=== PATIENT | female | born 1970 | race Caucasian/White ===

== ENCOUNTER 2016-11-21 05:49 | Day surgery (SDC) | payer MEDICARE, OTHER ==
[2016-11-20 09:03] VITALS: BMI 43.9
[~2016-11-21 05:49] MED LIST: ACETAMINOPHEN TAB 500 MG TAB PO ONE; FAMOTIDINE 20 MG/2 ML VIAL IV ONE; Pre Op ABX Message 1 EACH MISC MISCELLANE ONE
[2016-11-21] MEDS ORDERED: HYDROmorphone 1 MG/ML 1 ML SYRINGE IVP PRN (05:52)
[2016-11-21] MEDS ORDERED: SCOPOLAMINE 1.5MG/72HR PATCH TRANSDERM ONE (05:52)
[2016-11-21] MEDS ORDERED: LACTATED RINGERS 1,000 ML IV SCH (05:52)
[2016-11-21] MEDS ORDERED: ONDANSETRON 4 MG/2 ML VIAL IVP ONE (05:52)
[2016-11-21] MEDS ORDERED: LIDOCAINE 1% 20 ML VIAL (10MG/ML) FOR IV START INTRADERMA PRN (05:52)
[2016-11-21] MEDS ORDERED: DEXAMETHASONE SOD PHOSPHATE 10 MG/ML 1 ML VIAL IV ONE (05:52)
[2016-11-21] MEDS ORDERED: CIPROFLOXACIN-DEXAMETH 0.3-0.1% DROPS 7.5 ML BTL BOTH EARS ONE (07:26)
[2016-11-21] MEDS ORDERED: SUCCINYLCHOLINE CHLORIDE VIAL 200 MG/10 ML VIAL IV ONE (07:30)
[2016-11-21] MEDS ORDERED: LIDOCAINE 1% INJ 10MG/ML (20 ML MDV) ONE (07:30)
[2016-11-21] MEDS ORDERED: MIDAZOLAM 2 MG/2 ML VIAL ONE (07:30)
[2016-11-21] MEDS ORDERED: fentaNYL (PF) 50 MCG/ML 2 ML AMP ONE (07:30)
[2016-11-21] MEDS ORDERED: PROPOFOL 10 MG/ML 20 ML VIAL IV ONE (07:30)
[2016-11-21] MEDS ORDERED: OXYMETAZOLINE 0.05% NASL SPRAY 15 ML MISCELLANE ONE (07:48)
[2016-11-21] MEDS ORDERED: EPINEPHrine 1 MG/ML 1 ML AMP IRRIGATION ONE (08:09)
[2016-11-21 08:30] VITALS: TEMP 97.3
--- NOTE | 2016-11-21 08:45 | P.OP ---
Date of Procedure: 11/21/16 Preoperative Diagnosis: Bilateral chronic suppurative otitis media Left Aural Polyp Middle ear adhesions Eust tube dysfunction Retained TM tubes Bilateral tympanic membrane perforations Postoperative Diagnosis: Same Procedure(s) Performed: Bilateral tympanoplasties with lysis of middle ear adhesions and the use of a bio design graft Microscopic removal of a left aural polyp Bilateral direct microscopic tympanostomy tube placement Microscopic removal of bilateral retained nonfunctioning tympanostomy tubes Middle ear lavage bilaterally Implants: Anesthesia: GETA Surgeon: Gucci Turpin Estimated Blood Loss (ml): 5 Pathology: other (Left ear polyp) Condition: stable Disposition: PACU Indications for Procedure: This patient has a chronic separate of drainage from both ears and this patient' s ear infection has been persistent without any resolution. Patient had retained tubes that are nonfunctioning and a separate of drainage was not amenable to medical therapy. Operative Findings: Patient had retained tympanostomy tubes which were removed the patient had a large amount of polyp material on the left tympanic membrane and middle ear adhesions were noted bilaterally. The drums were thickened and the purulence was profuse Description of Procedure: This patient was taken to the operative room and placed in the supine position. A general inhalation anesthetic was administered to the patient by mask and subsequently intubated with a cuffed endotracheal tube by the department of anesthesia with a functioning IV line in place. The patient was monitored throughout the entire case by the department of anesthesia. Both ears were visualized with a 250 mm Zeiss microscope. Cerumen and epithelial debris was removed from both external auditory canals. The patient had retained tubes that were removed directly with a alligator biopsy forceps. This left a perforated eardrum. I then noted a large amount of purulence in the middle ear space. We suctioned the middle ear space but multiple adhesions were noted. There is a polyp on the left drum that was removed with biopsy forceps. He was phthisis was with Afrin and adrenaline. Because of this perforation and middle ear adhesions a middle ear exploration was needed and tympanomeatal flaps were developed and the 12 and 6 o'clock position. The annulus was elevated and the middle ear was identified and found to be multiply adhesive. We lysed the adhesions in the middle ear space bilaterally and irrigated the middle ear with a dilute Betadine solution. After the irrigation we placed the bio design graft with associated Gelfoam packing as an underlay graft. We placed the drum back into position a tympanostomy incision was made on the inferior posterior portion of the tympanic membrane and a new tube was placed utilizing ultraseal tubes bilaterally. After new tubes were placed and the graft was in place Gelfoam was used to pack in the proximal ear canal. A cotton ball was then placed and the patient tolerated this well. To summarize we performed a tympanoplasty where we roughen the edges of the perforation performed at 12 and 6:00 tympanomeatal flap and placed the bio design graft as an underlay graft with packing. After the whole was patched a new tube was placed and the tympanomeatal flap was placed back into position. There was a polyp removed from the left ear there was sent for biopsy evaluation and we did lyse multiple middle ear adhesions. The patient tolerated this well and the follow-up is scheduled for 1 week. The patient is to contact me if any problems should arise.
[2016-11-21 09:23] VITALS: RESP 16
[2016-11-21 09:40] VITALS: BP 143/95; PULSE 79
[2016-11-21] MEDS ORDERED: OXYMETAZOLINE 0.05% NASL SPRAY 15 ML ONE (14:00)
--- NOTE | 2016-12-10 10:37 | OP ---
DATE OF SERVICE: SURGEON: ANN KRUEGER DO ADDENDUM: Original dictation oil program compliance specialist stated that she was phthisis was with Afrin and adrenaline. That should be changed to hemostasis was obtained with Afrin and adrenaline topically.
== END 2016-11-21 10:09 | disposition home or self-care (01) ==
LOC: OR 05:49 → EEVIPCON 07:30 → OR 10:09
PROVIDERS: ATTEND Otolaryngology
DX: H66.3X3 Other chronic suppurative otitis media, bilateral (principal); T85.618A Breakdown (mechanical) of other specified internal prosthetic devices, implants and grafts, initial encounter; H90.2 Conductive hearing loss, unspecified; E66.9 Obesity, unspecified; Z68.41 Body mass index [BMI] 40.0-44.9, adult; H72.93 Unspecified perforation of tympanic membrane, bilateral; H69.90 Unspecified Eustachian tube disorder, unspecified ear; H74.42 Polyp of left middle ear; H74.19 Adhesive middle ear disease, unspecified ear; G47.33 Obstructive sleep apnea (adult) (pediatric); Z99.89 Dependence on other enabling machines and devices; Z79.899 Other long term (current) drug therapy; Y72.2 Prosthetic and other implants, materials and accessory otorhinolaryngological devices associated with adverse incidents
CPT/HCPCS: 69436; 69540; 88304; C1763; J2250; J0171; J0330; J1100; J2405; J2001; J3010; J2704

== ENCOUNTER 2017-02-27 08:27 | Day surgery (SDC) | payer MEDICARE, OTHER ==
[2017-02-26 09:30] VITALS: BMI 43.9
[~2017-02-27 08:27] MED LIST changes: -ACETAMINOPHEN TAB 500 MG TAB PO ONE; -FAMOTIDINE 20 MG/2 ML VIAL IV ONE; +LACTATED RINGERS 1,000 ML IV SCH; -Pre Op ABX Message 1 EACH MISC MISCELLANE ONE
[2017-02-27 08:46] VITALS: RESP 16; TEMP 97.5
[2017-02-27] MEDS ORDERED: MIDAZOLAM 2 MG/2 ML VIAL ONE (09:40)
[2017-02-27] MEDS ORDERED: PROPOFOL 10 MG/ML 20 ML VIAL IV ONE (09:40)
[2017-02-27] MEDS ORDERED: LIDOCAINE 1% INJ 10MG/ML (20 ML MDV) ONE (09:40)
--- NOTE | 2017-02-27 10:16 | CT ---
EXAMINATION TYPE: CT iac wo con DATE OF EXAM: 02/27/2017 COMPARISON: NONE HISTORY: Ear pain CT DLP: 285.4mGycm Automated exposure control for dose reduction was used. FINDINGS: Visualized intracranial structures are normal. There is a 1 cm retention cyst or polyp involving the inferior aspect of the right maxillary sinus. B oth infundibula are patent. The orbits appear normal. Both external auditory canals appear normal there is a small amount of soft tissue within the middle ears bilaterally, greater on the left than the right. Both scuta are are intact. The ossicles are int act. Inner ear structures are unremarkable. There is no widening of the porus acoustic this on either side. Both temporomandibular joints appear normal. IMPRESSION: 1. SOFT TISSUE WITHIN THE MIDDLE EARS BILATERALLY MAY REPRESENT CHRONIC OTITIS MEDIA. NO DEFINITE CHO LESTEATOMA IS SEEN. NO DEFINITE MIDDLE EAR FLUID IS SEEN. 2. 1 CM RETENTION CYST OR POLYP INVOLVING THE RIGHT MAXILLARY ANTRUM.
[2017-02-27 10:22] VITALS: BP 138/80; PULSE 66
== END 2017-02-27 10:35 | disposition home or self-care (01) ==
LOC: OR 08:27 → EDSTATUS 09:30 → OR 10:35
PROVIDERS: ATTEND Anesthesiology
DX: H92.09 Otalgia, unspecified ear (principal); J34.9 Unspecified disorder of nose and nasal sinuses; G47.33 Obstructive sleep apnea (adult) (pediatric); Z99.89 Dependence on other enabling machines and devices; E07.9 Disorder of thyroid, unspecified; F79 Unspecified intellectual disabilities; F20.9 Schizophrenia, unspecified; Z79.899 Other long term (current) drug therapy
CPT/HCPCS: 70480; J2250; J2001; J2704

== ENCOUNTER → 2018-02-02 | Outpatient (CLI) | payer MEDICARE, OTHER ==
--- NOTE | 2018-02-02 11:46 | US ---
EXAMINATION TYPE: US pelvic complete DATE OF EXAM: 02/02/2018 COMPARISON: NONE CLINICAL HISTORY: N95.0 Postmenopausal Bleeding. Postmenopausal bleeding TECHNIQUE: Transabdominal (TA) Date of LMP: unknown EXAM MEASUREMENTS: Uterus: 6.3 x 2.9 x 3.8 cm Endometrial Stripe: 1.1 cm Right Ovary: 1.9 x 1.1 x 1.2 cm Left Ovary: 2.4 x 1.4 x 1.3 cm 1. Uterus: Anteverted appears wnl 2. Endometrium: thickened 3. Right Ovary: appears wnl as visualized 4. Left Ovary: appears wnl as visualized 5. Bilateral Adnexa: wnl 6. Posterior cul-de-sac: wnl IMPRESSION: Endometrial stripe thickness as described on transabdominal scanning, correlate for possi ble endometrial biopsy
== END | disposition home or self-care (01) ==
LOC: RADUSWWP 09:31
PROVIDERS: ATTEND Obstetrics & Gynecology
DX: R93.8 Abnormal findings on diagnostic imaging of other specified body structures (principal); N95.0 Postmenopausal bleeding
CPT/HCPCS: 76856

== ENCOUNTER 2018-02-27 06:08 | Day surgery (SDC) | payer MEDICARE, OTHER ==
[2018-02-24 16:08] VITALS: BMI 41.9
[~2018-02-27 06:08] MED LIST changes: +DEXAMETHASONE SOD PHOSPHATE 10 MG/ML 1 ML VIAL IV ONE; +MIDAZOLAM 2 MG/2 ML VIAL IV PRN; +ONDANSETRON 4 MG/2 ML VIAL IVP ONE; +Pre Op ABX Message 1 EACH MISC MISCELLANE ONE; +SCOPOLAMINE 1.5MG/72HR PATCH TRANSDERM ONE; +fentaNYL (PF) 50 MCG/ML 2 ML AMP IV PRN
--- NOTE | 2018-02-27 06:24 | P.HPOB ---
History of Present Illness H&P Date: 02/27/18 Chief Complaint: Postmenopausal bleeding 47 year old G0 presents for D&C hysteroscopy due to postmenopausal bleeding and thickened endometrium on ultrasound. Review of Systems All systems: negative Constitutional: Denies chills, Denies fever Eyes: denies blurred vision, denies pain Ears, nose, mouth and throat: Denies headache, Denies sore throat Cardiovascular: Denies chest pain, Denies shortness of breath Respiratory: Denies cough Gastrointestinal: Denies abdominal pain, Denies diarrhea, Denies nausea, Denies vomiting Genitourinary: Denies dysuria, Denies hematuria Musculoskeletal: Denies myalgias Integumentary: Denies pruritus, Denies rash Neurological: Denies numbness, Denies weakness Psychiatric: Denies anxiety, Denies depression Endocrine: Denies fatigue, Denies weight change Past Medical History Past Medical History: Hearing Disorder / Deafness, Pneumonia, Sleep Apnea/CPAP/ BIPAP, Thyroid Disorder Additional Past Medical History / Comment(s): uses CPAP, hearing impaired, mentally impaired & developmentally delayed, CHRONIC EAR INFECTIONS History of Any Multi-Drug Resistant Organisms: None Reported Past Surgical History: Breast Surgery, Orthopedic Surgery, Tubal Ligation Additional Past Surgical History / Comment(s): numerous tubes in ears & tympanoplasties, right foot surg., breast surg. Past Anesthesia/Blood Transfusion Reactions: No Reported Reaction Smoking Status: Never smoker - Past Family History Mother Family Medical History: Cancer, Diabetes Mellitus Additional Family Medical History / Comment(s): THYROID, BREAST CANCER Father Family Medical History: Cancer Additional Family Medical History / Comment(s): THROAT CANCER Medications and Allergies Home Medications Medication Instructions Recorded Confirmed Type Benztropine Mesylate [Cogentin] 0.5 mg PO BID 11/20/16 02/24/18 History Cetirizine HCl [Zyrtec] 10 mg PO DAILY 11/20/16 02/24/18 History Ergocalciferol (Vitamin D2) 50,000 unit PO MO 11/20/16 02/24/18 History [Vitamin D2] Haloperidol [Haldol] 5 mg PO 1500 11/20/16 02/24/18 History Haloperidol [Haldol] 5 mg PO QAM 11/20/16 02/24/18 History Haloperidol [Haldol] 10 mg PO HS 11/20/16 02/24/18 History Levothyroxine Sodium [Synthroid] 100 mcg PO DAILY 11/20/16 02/24/18 History clonazePAM [KlonoPIN] 0.5 mg PO 0800,1500 11/20/16 02/24/18 History cycloSPORINE [Restasis] 1 applicator BOTH EYES QID 11/20/16 02/24/18 History QUEtiapine [SEROquel] 200 mg PO 1500 02/26/17 02/24/18 History QUEtiapine [SEROquel] 250 mg PO HS 02/26/17 02/24/18 History Fluticasone Nasal [place] [Flonase 2 spr EA NOSTRIL DAILY 02/24/18 02/24/18 History Nasal [place]] Allergies Allergy/AdvReac Type Severity Reaction Status Date / Time No Known Allergies Allergy Verified 02/24/18 15:30 Exam Osteopathic Statement: *. No significant issues noted on an osteopathic structural exam other than those noted in the History and Physical/Consult. Heart: Regular rate and rhythm Lungs: Clear to auscultation bilaterally Abdomen: Soft, nontender Extremities: Negative Homans sign Assessment and Plan (1) Postmenopausal bleeding Current Visit: Yes Status: Acute Code(s): N95.0 - POSTMENOPAUSAL BLEEDING SNOMED Code(s): 69123287 Plan: 1. D&C and hysteroscopy
[2018-02-27] MEDS ORDERED: LIDOCAINE 1% 20 ML VIAL (10MG/ML) FOR IV START INTRADERMA ONE (07:11)
[2018-02-27] MEDS ORDERED: PROPOFOL 10 MG/ML 20 ML VIAL IV ONE (07:32)
[2018-02-27] MEDS ORDERED: SUCCINYLCHOLINE CHLORIDE 100 MG/5 ML SYR IV ONE (07:32)
[2018-02-27] MEDS ORDERED: KETOROLAC 30 MG/ML 1 ML VIAL ONE (07:32)
[2018-02-27] MEDS ORDERED: MIDAZOLAM 2 MG/2 ML VIAL ONE (07:32)
[2018-02-27] MEDS ORDERED: LIDOCAINE 1% INJ 10MG/ML (20 ML MDV) ONE (07:32)
[2018-02-27] MEDS ORDERED: fentaNYL (PF) 50 MCG/ML 2 ML AMP ONE (07:32)
[2018-02-27 08:30] VITALS: TEMP 98.2
--- NOTE | 2018-02-27 08:39 | P.OP ---
Date of Procedure: 02/27/18 Preoperative Diagnosis: 1. Post menopausal bleeding Postoperative Diagnosis: same Procedure(s) Performed: D&C hysteroscopy Anesthesia: KOURTNEY Surgeon: Trisha Manning Estimated Blood Loss (ml): 5 IV fluids (ml): 200 Urine output (ml): 250 Pathology: other (endometrial currettings) Condition: stable Disposition: PACU Operative Findings: uterus sounded to 8cm, small polyps noted in cervix and endometrium Description of Procedure: Patient into the operating room and general anesthesia was obtained without difficulty. She is prepped and draped in normal sterile fashion dorsal lithotomy position, legs placed in the candycane stirrups. I attempted to place the weighted speculum in the vagina but her introitus was too small. This the bivalve speculum in the vagina and grasped the anterior lip the cervix with the single-tooth tenaculum. I then removed the bivalve speculum. Sounded the uterus to 8 cm. The cervix was then dilated to #8 Hegar dilator. Hysteroscopy was performed and I did see a few polyps in the cervix and in the endometrium. Sharp curet was then gently used to obtain endometrial curettings. All instruments removed from the uterus and vagina. Patient tolerated procedure well, sponge and instrument counts correct 2. She was taken to recovery in stable condition.
[2018-02-27 09:23] VITALS: BP 111/63; PULSE 77; RESP 16
== END 2018-02-27 09:45 | disposition home or self-care (01) ==
LOC: OR 06:08
PROVIDERS: ATTEND Obstetrics & Gynecology
DX: N84.0 Polyp of corpus uteri (principal); N84.1 Polyp of cervix uteri; N95.0 Postmenopausal bleeding; G47.33 Obstructive sleep apnea (adult) (pediatric); E07.9 Disorder of thyroid, unspecified; H91.90 Unspecified hearing loss, unspecified ear; R62.50 Unspecified lack of expected normal physiological development in childhood; Z79.890 Hormone replacement therapy; Z79.899 Other long term (current) drug therapy; Z99.89 Dependence on other enabling machines and devices; Z98.51 Tubal ligation status; Z83.3 Family history of diabetes mellitus; Z80.3 Family history of malignant neoplasm of breast; Z80.8 Family history of malignant neoplasm of other organs or systems
CPT/HCPCS: 58558; 81025; J1100; J2405; 88305

== ENCOUNTER 2020-08-07 10:21 | Outpatient (CLI) | payer MEDICARE, OTHER ==
[2020-07-31 16:51] VITALS: BMI 41.8
[~2020-08-07 10:21] MED LIST changes: -DEXAMETHASONE SOD PHOSPHATE 10 MG/ML 1 ML VIAL IV ONE; -MIDAZOLAM 2 MG/2 ML VIAL IV PRN; -ONDANSETRON 4 MG/2 ML VIAL IVP ONE; -Pre Op ABX Message 1 EACH MISC MISCELLANE ONE; -SCOPOLAMINE 1.5MG/72HR PATCH TRANSDERM ONE; -fentaNYL (PF) 50 MCG/ML 2 ML AMP IV PRN
[2020-08-07 10:48] VITALS: TEMP 97.1
[2020-08-07] MEDS ORDERED: LIDOCAINE 1% (10MG/ML) FOR IV START INTRADERMA ONE (10:54)
[2020-08-07] MEDS ORDERED: MIDAZOLAM 2 MG/2 ML VIAL ONE (11:30)
[2020-08-07] MEDS ORDERED: LIDOCAINE 1% INJ 10MG/ML (20 ML MDV) ONE (11:30)
[2020-08-07] MEDS ORDERED: PROPOFOL 10 MG/ML 20 ML VIAL IV ONE (11:30)
[2020-08-07] MEDS ORDERED: IV FLUID CONTINUATION 1,000 ML IV ONE ×2 (12:00)
[2020-08-07 12:06] VITALS: RESP 20
[2020-08-07 12:20] VITALS: BP 140/85; PULSE 69
--- NOTE | 2020-08-07 12:22 | CT ---
EXAMINATION TYPE: CT iac wo con DATE OF EXAM: 08/07/2020 COMPARISON: February 27, 2017 HISTORY: Cholesteatoma CT DLP: 150mGycm Automated exposure control for dose reduction was used. FINDINGS: There is soft tissue within the middle ear is bilaterally which may in part reflect chronic otitis media. There is also soft tissue within the attic surrounding the ossicular chain and cholest eatoma is not excluded. I do not see evidence for bony destructive process. Postsurgical changes are noted of the right middle ear. External auditory canals are patent and symmetric bilaterally. There i s evidence of chronic mastoiditis bilaterally left greater than right. No evidence for bony destructi ve process or sequestration. Incidental mucous retention cyst right maxillary sinus. Remaining [place] sinuses are well-aerated. IMPRESSION: 1. I cannot exclude bilateral cholesteatoma as noted.
== END 2020-08-07 12:42 | disposition home or self-care (01) ==
LOC: RADCTMAIN 10:21
PROVIDERS: ATTEND Otolaryngology
DX: H71.90 Unspecified cholesteatoma, unspecified ear (principal)
CPT/HCPCS: 70480; J2250; J2001; J2704